=== PATIENT | male | born 1995 | race Caucasian/White ===

== ENCOUNTER 2019-05-03 03:58 | Emergency (ER) | payer BC ==
[2019-05-03 04:22] VITALS: RESP 18
[2019-05-03 04:56] LABS: Appearance,Urine Clear (Clear); Bilirubin,Urine Negative (Negative); Blood,Urine Negative (Negative); Color,Urine Colorless; Glucose,Urine (UA) Negative (Negative); Ketones,Urine Negative (Negative); Leukocyte Esterase,Urine Negative (Negative); Nitrite,Urine Negative (Negative); PH, Urine 6.5 (5.0-8.0); Protein,Urine Negative (Negative); Specific Gravity,Urine 1.003 (1.001-1.035); Urobilinogen,Urine <2.0 mg/dL (<2.0)
--- NOTE | 2019-05-03 05:20 | XR ---
EXAM: XR Abdomen, 1 View CLINICAL HISTORY: ITS.REASON XR Reason: right sided kidney stone suspected TECHNIQUE: Frontal supine view of the abdomen/pelvis. COMPARISON: No relevant prior studies available. FINDINGS: Gastrointestinal tract: Copious amounts of stool throughout the colon. No dilation. Bones/joints: No acute fracture. No dislocation. No stones. IMPRESSION: Correlate with constipation. No convincing renal stones are identified.
--- NOTE | 2019-05-03 05:40 | ED ---
General Adult HPI - General Chief complaint: Back Pain/Injury Stated complaint: lower back pain Time Seen by Provider: 05/03/19 04:31 Source: patient Mode of arrival: ambulatory Limitations: no limitations - History of Present Illness Initial comments: Lake is a previously healthy 23-year-old male presents the emergency department today for right-sided lower back pain radiating to his groin. Patient reports he does do some heavy lifting and twisting at work. Pain did start after work. Patient also reports a little bit of dysuria and concern that his urine is foamy. He has no history of kidney stone. Patient states that the pain resolves with ibuprofen and warm showers. Patient states he came in today because he needed to work note. - Related Data Allergies Allergy/AdvReac Type Severity Reaction Status Date / Time No Known Allergies Allergy Verified 05/03/19 04:21 Review of Systems ROS Statement: Those systems with pertinent positive or pertinent negative responses have been documented in the HPI. ROS Other: All systems not noted in ROS Statement are negative. Past Medical History Past Medical History: No Reported History History of Any Multi-Drug Resistant Organisms: None Reported Past Surgical History: No Surgical Hx Reported Past Psychological History: No Psychological Hx Reported Smoking Status: Current every day smoker Past Alcohol Use History: Occasional Past Drug Use History: Marijuana General Exam - General Exam Comments Initial Comments: Physical Exam GENERAL: Patient is well-developed and well-nourished. Patient is nontoxic and well- hydrated and is in no distress. HENT: Normocephalic, Atraumatic. EYES: PERRL, EOMI PULMONARY: Unlabored respirations. No audible rales rhonchi or wheezing was noted. CARDIOVASCULAR: There is a regular rate and rhythm without any murmurs gallops or rubs. ABDOMEN: Soft and nontender with normal bowel sounds. No tenderness to percussion of the flank SKIN: Skin is clear with no lesions or rashes and otherwise unremarkable. No Rash or abnormality : Normal external genitalia No inguinal hernias bilaterally NEUROLOGIC: Patient is alert and oriented x3. Moving all extremities spontaneously MUSCULOSKELETAL: Normal extremities with adequate strength and full range of motion. No lower extremity swelling or edema. No calf tenderness. PSYCHIATRIC: Normal psychiatric evaluation. Limitations: no limitations Course Vital Signs 05/03/19 05/03/19 04:18 05:52 Temperature 98.3 F 98 F Pulse Rate 68 62 Respiratory 18 18 Rate Blood Pressure 127/78 125/72 O2 Sat by Pulse 97 99 Oximetry Medical Decision Making - Medical Decision Making The patient was seen and evaluated history is obtained from patient and sign urinalysis was obtained patient has no concern for sexual transmitted infections Urinalysis no signs of infection no hematuria, have minimal suspicion for kidney stone. KUB x-ray was unremarkable. Patient was reevaluated, is comfortable with plan for discharge home continued supportive care for mechanical back pain. Patient is provided a work note for one day. - Lab Data Lab Results 05/03/19 Range/Units 04:43 Urine Color Colorless Urine Appearance Clear (Clear) Urine pH 6.5 (5.0-8.0) Ur Specific [place] 1.003 (1.001-1.035) Urine Protein Negative (Negative) Urine Glucose (UA) Negative (Negative) Urine Ketones Negative (Negative) Urine Blood Negative (Negative) Urine Nitrite Negative (Negative) Urine Bilirubin Negative (Negative) Urine Urobilinogen <2.0 (<2.0) mg/dL Ur Leukocyte Esterase Negative (Negative) Disposition Clinical Impression: Mechanical back pain Disposition: HOME SELF-CARE Condition: Stable Instructions (If sedation given, give patient instructions): Acute Low Back Pain (ED) Is patient prescribed a controlled substance at d/c from ED?: No Referrals: None,Stated [Primary Care Provider] - 1-2 days
[2019-05-03 05:53] VITALS: BP 125/72; PULSE 62; TEMP 98
[2019-05-04 12:56] LABS: N. gonorrhoeae,PCR Negative (Neg,Equiv); Neisseria Source Urine
[2019-05-04 13:03] LABS: C. trachomatis,PCR Negative (Neg,Equiv); Chlamydia trachomatis Source Urine
== END 2019-05-03 05:53 | disposition home or self-care (01) ==
LOC: EC 03:58
DX: M54.5 Low back pain (principal); R10.31 Right lower quadrant pain; R30.0 Dysuria; F17.200 Nicotine dependence, unspecified, uncomplicated; X50.0XXA Overexertion from strenuous movement or load, initial encounter; X50.1XXA Overexertion from prolonged static or awkward postures, initial encounter; Y93.89 Activity, other specified; Y92.69 Other specified industrial and construction area as the place of occurrence of the external cause
CPT/HCPCS: 74018; 81003; 87491; 87591; 99283